=== PATIENT | female | born 1965 ===

== ENCOUNTER 2023-12-15 06:58 | Inpatient (IN) | payer OTHER ==
[~2023-12-15 06:58] MED LIST: GABAPENTIN100 M2; HYZAAR 100/25 T1 TAB PO; SYNTHROID100 MCG PO; ZIAC 2.5-6.25 M1 TAB PO
[2023-12-15] MEDS ORDERED: CEFOXITIN SODIUM 2,000 MG VIAL IV ONE ×2 (10:13→11:33)
[2023-12-15] MEDS ORDERED: VISTASEAL DUAL APPICATOR 1 EACH APPL TOP ONE (10:18)
[2023-12-15] MEDS ORDERED: THROMBIN,HU/FIBRINOGEN/CALCIUM 10 ML SYRINGE TOP ONE (10:19)
[2023-12-15] MEDS ORDERED: CHLORHEXIDINE GLUCONATE 120 ML BOTTLE TOP ONE (10:21)
[2023-12-15] MEDS ORDERED: SUGAMMADEX SODIUM 200 MG/2 ML VIAL IV ONE ×2 (12:24→12:26)
[2023-12-15] MEDS ORDERED: OxyCODONE HCL/APAP UD (PERCOCET) PO PRN ×2 (13:15→21:15)
[2023-12-15] MEDS ORDERED: MORPHINE SULFATE 4 MG/ML VIAL IV PRN (13:15)
[2023-12-15] MEDS ORDERED: RINGERS SOLUTION,LACTATED 1,000 ML IV SCH (13:15)
[2023-12-15] MEDS ORDERED: ONDANSETRON HCL 2 MG/ML VIAL IV PRN (13:15)
[2023-12-15 14:06] LABS: HEMATOCRIT 40.7 % (36.0-45.00); HEMOGLOBIN 13.3 g/dL (12.0-15.00); MEAN CORPUSCULAR HEMOGLOBIN 29.2 pg (27.00-32.0); MEAN CORPUSCULAR HGB CONC 32.7 g/dl (32.0-36.0); PLATELET COUNT 307 K/uL (150-450); RED BLOOD COUNT 4.57 M/uL (4.00-6.00); RED CELL DISTRIBUTION WIDTH 14.9 % (11.5-14.5)
[2023-12-15 14:50] LABS: ALBUMIN 3.4 gm/dL (3.4-5.0); CREATININE SERUM 0.78 mg/dL (0.55-1.02); GFR 76.12; MAGNESIUM 2.2 mg/dL (1.8-2.4); PHOSPHOROUS 3.4 mg/dL (2.5-4.9); POTASSIUM 4.22 mEq/L (3.5-5.1)
[2023-12-15] MEDS ORDERED: ENALAPRILAT DIHYDRATE 1.25 MG/ML VIAL IV PRN (15:15)
[2023-12-15] MEDS ORDERED: ONDANSETRON HCL 2 MG/ML VIAL ONE (16:39)
[2023-12-15] MEDS ORDERED: FAMOTIDINE/PF 20 MG/10 ML SYRINGE IV PUSH SCH (21:00)
[2023-12-15] MEDS ORDERED: CEFAZOLIN SODIUM 1,000 MG VIAL IV SCH (21:00)
[2023-12-15] MEDS ORDERED: IPRATROPIUM BROMIDE 0.5 MG/2.5 ML AMPUL.NEB IH ONE (23:30)
[2023-12-16] MEDS ORDERED: LEVOTHYROXINE SODIUM 100 MCG TABLET PO SCH (06:00)
[2023-12-16 07:00] LABS: HEMATOCRIT 36.3 % (36.0-45.00); MEAN CELL VOLUME 88.3 fL (80.00-100.00); MEAN CORPUSCULAR HEMOGLOBIN 29.2 pg (27.00-32.0); MEAN CORPUSCULAR HGB CONC 33.1 g/dl (32.0-36.0); PLATELET COUNT 288 K/uL (150-450); RED BLOOD COUNT 4.12 M/uL (4.00-6.00)
[2023-12-16 07:19] LABS: ALBUMIN 2.8 gm/dL (3.4-5.0); CALCIUM 8.7 mg/dL (8.5-10.1); CREATININE SERUM 0.55 mg/dL (0.55-1.02); GFR 113.92; MAGNESIUM 2.3 mg/dL (1.8-2.4); PHOSPHOROUS 3.8 mg/dL (2.5-4.9); POTASSIUM 4.28 mEq/L (3.5-5.1)
[2023-12-16] MEDS ORDERED: ENOXAPARIN SODIUM 40 MG/0.4 ML SYRINGE SUBCUTANEO SCH (09:00)
[2023-12-16] MEDS ORDERED: IRBESARTAN 150 MG TABLET PO SCH ×2 (09:00)
[2023-12-16] MEDS ORDERED: HYDROCHLOROTHIAZIDE 12.5 MG CAPSULE PO SCH (09:00)
[2023-12-16] MEDS ORDERED: FAMOTIDINE/PF 20 MG/2 ML VIAL IV PUSH SCH (09:00)
== END 2023-12-16 12:58 | disposition home or self-care (01) | DRG 743 ==
LOC: CIR.AMB 06:58 → O/R 13:30 → OB/GYN 13:48
PROVIDERS: ADMIT Obstetrics & Gynecology Gynecologic Oncology; ATTEND Obstetrics & Gynecology Gynecologic Oncology
PROC: 0UT74ZZ Resection of Bilateral Fallopian Tubes, Percutaneous Endoscopic Approach (ICD-10-PCS; 2023-12-15)
PROC: 0UT24ZZ Resection of Bilateral Ovaries, Percutaneous Endoscopic Approach (ICD-10-PCS; 2023-12-15)
PROC: 07BC4ZZ Excision of Pelvis Lymphatic, Percutaneous Endoscopic Approach (ICD-10-PCS; 2023-12-15)
PROC: 0DNW4ZZ Release Peritoneum, Percutaneous Endoscopic Approach (ICD-10-PCS; 2023-12-15)
PROC: 0UT94ZZ Resection of Uterus, Percutaneous Endoscopic Approach (ICD-10-PCS; principal; 2023-12-15 07:00)
DX: N80.03 Adenomyosis of the uterus (principal); D36.0 Benign neoplasm of lymph nodes; Z20.822 Contact with and (suspected) exposure to COVID-19